=== PATIENT | female | born 1945 | race Caucasian/White ===

== ENCOUNTER 2023-05-07 11:00 | Outpatient (RCR) | payer MEDICARE, OTHER, SELFPAY | END 2023-06-20 08:18 | disposition home or self-care (01) | LOC: HO.PT 11:00 | PROVIDERS: PCP Internal Medicine; Visit Provider Surgery | DX: M99.05 Segmental and somatic dysfunction of pelvic region (principal) | CPT/HCPCS: 97110; 97112; 97140; 97162 ==